=== PATIENT | female | born 1965 | race Caucasian/White ===

== ENCOUNTER 2022-01-05 12:28 | Inpatient (IN) | payer OTHER ==
[~2022-01-05 12:28] MED LIST: Iopamidol-370 76% 500 ML 1 ML ONE
[2022-01-05 14:09] LABS: #Eosinphils 0.1 thou/uL (0.0-0.7); #Lymphocytes 1.4 thou/uL (1.20-3.40); #Monocytes 0.3 thou/uL (0.11-0.59); #Neutrophils 3.2 thou/uL (1.40-6.50); %Basophils 0.4 % (0.0-1.0); %Eosinophils 1.6 % (0.0-10.0); %Lymphocytes 27.6 % (21.0-51.0); %Monocytes 6.7 % (0.0-10.0); %Neutrophils 63.6 % (42.0-75.0); Hemoglobin 13.8 g/dL (12.0-16.0); Mean Corpuscular HGB CONC 32.8 g/dL (32.0-36.0); Mean Corpuscular Hemoglobin 30.1 pg (27.0-31.0); Mean Corpuscular Volume 91.5 fL (78.0-98.0); Platelet Count 182 thou/uL (130-400); RBC Distribution Width 11.6 % (11.5-14.5); Red Blood Cell (RBC) Count 4.58 mill/uL (4.20-5.40)
[2022-01-05] MEDS ORDERED: Tenecteplase 50 MG - STEMI KIT ONE (14:18)
[2022-01-05 14:24] LABS: INR-International Normal Ratio 0.9; PTT 25.7 sec (22.9-36.1); Prothrombin Time 12.6 sec (12.0-14.7)
[2022-01-05 14:28] LABS: ALT (SGPT) 21 U/L (8-55); AST (SGOT) 22 U/L (5-34); Albumin 4.1 g/dL (3.5-5.0); Alkaline Phosphatase 98 U/L (40-110); Anion Gap 14 mmol/L (10-20); BUN (Urea Nitrogen) 10 mg/dL (9.8-20.1); Bilirubin, Total 0.5 mg/dL (0.2-1.2); Calc. Creatinine Clearance 0 mL/min (70-130); Calcium 9.1 mg/dL (7.8-10.44); Carbon Dioxide 24 mmol/L (22-29); Chloride 103 mmol/L (98-107); Estimated GFR 102; Globulin 3.3 g/dL (2.4-3.5); Glucose 125 mg/dL (70-105); Potassium 4.1 mmol/L (3.5-5.1); Protein, Total 7.4 g/dL (6.0-8.3); Sodium 137 mmol/L (136-145)
[2022-01-05] MEDS ORDERED: Communication Order-Pharmacy FS PRN (14:53)
[2022-01-05] MEDS ORDERED: niCARdipine 25 MG in Sodium Chloride 0.9% 250 ML 250 ML IVPB PRN (14:53)
[2022-01-05] MEDS ORDERED: hydrALAZINE 20 MG/ML VIAL SLOW IVP PRN (14:53)
[2022-01-05] MEDS ORDERED: Labetalol HCl 100 MG/20 ML VIAL SLOW IVP PRN (14:53)
[2022-01-05] MEDS ORDERED: Insulin Regular 300 UNITS/3 ML VIAL SC PRN (14:54)
[2022-01-05] MEDS ORDERED: Dextrose 5% in Water 1,000 ML IV PRN (14:58)
[2022-01-05] MEDS ORDERED: Dextrose 50% Abboject 50 ML SYRINGE SLOW IVP PRN (14:58)
[2022-01-05 15:36] LABS: SARS-CoV-2 NAA Rapid Test Not Detected (NotDetected)
[2022-01-05 17:04] VITALS: BMI 34.7
[2022-01-05] MEDS: Acetaminophen 325 MG TAB PO PRN (20:25)
[2022-01-05] MEDS: Atorvastatin Calcium 40 MG TAB PO SCH (20:25)
[2022-01-05] MEDS: HumaLOG 300 UNITS/3 ML VIAL SC PRN (21:34)
[2022-01-06] MEDS: Acetaminophen 325 MG TAB PO PRN (00:15)
[2022-01-06] MEDS ORDERED: Aspirin 81 mg Enteric Coated Tablet PO SCH (16:15)
[2022-01-06] MEDS: HumaLOG 300 UNITS/3 ML VIAL SC PRN ×2 (16:44→21:08)
[2022-01-06] MEDS: Atorvastatin Calcium 40 MG TAB PO SCH (19:59)
[2022-01-07 03:36] LABS: #Eosinphils 0.1 thou/uL (0.0-0.7); #Lymphocytes 2.1 thou/uL (1.20-3.40); #Monocytes 0.4 thou/uL (0.11-0.59); %Basophils 0.5 % (0.0-1.0); %Eosinophils 1.8 % (0.0-10.0); %Monocytes 6.4 % (0.0-10.0); %Neutrophils 59.3 % (42.0-75.0); Hemoglobin 13.9 g/dL (12.0-16.0); Mean Corpuscular HGB CONC 32.5 g/dL (32.0-36.0); Mean Corpuscular Hemoglobin 29.8 pg (27.0-31.0); Mean Corpuscular Volume 91.9 fL (78.0-98.0); Mean Platelet Volume 8.8 fL (7.4-10.4); Platelet Count 180 thou/uL (130-400); RBC Distribution Width 11.8 % (11.5-14.5); Red Blood Cell (RBC) Count 4.66 mill/uL (4.20-5.40); White Blood Cell (WBC) Count 6.7 thou/uL (4.8-10.8)
[2022-01-07 03:48] LABS: Hemoglobin A1c 7.6 % (4.0-6.0)
[2022-01-07 04:05] LABS: Anion Gap 14 mmol/L (10-20); BUN (Urea Nitrogen) 10 mg/dL (9.8-20.1); Calc. Creatinine Clearance 140 mL/min (70-130); Calcium 9.4 mg/dL (7.8-10.44); Carbon Dioxide 24 mmol/L (22-29); Chloride 104 mmol/L (98-107); Estimated GFR 102; Glucose 141 mg/dL (70-105); Magnesium 1.9 mg/dL (1.6-2.6); Sodium 138 mmol/L (136-145)
[2022-01-07] MEDS: HumaLOG 300 UNITS/3 ML VIAL SC PRN (06:39)
[2022-01-07] MEDS ORDERED: Aspirin 325 mg Enteric Coated Tablet PO SCH (09:00)
[2022-01-07 11:15] LABS: Syphilis Antibody Nonreactive (Nonreactive); Syphilis Antibody Index 0.04 S/CO (<1.00 Non-Reactive)
[2022-01-07] MEDS ORDERED: Aspirin 81 mg Enteric Coated Tablet PO SCH (11:45)
[2022-01-07] MEDS ORDERED: Clopidogrel Bisulfate 75 MG TAB PO SCH (11:45)
[2022-01-07 12:52] VITALS: TEMP 98.7
[2022-01-07 16:03] VITALS: BP 113/80
[2022-01-08] MEDS ORDERED: Clopidogrel Bisulfate 75 MG TAB PO SCH (09:00)
[2022-01-08] MEDS ORDERED: Aspirin 81 mg Enteric Coated Tablet PO SCH (09:00)
== END 2022-01-07 13:48 | DRG 62 ==
LOC: ERS 12:28 → ERHOLD 14:53 → EEVIPCON 14:53 → CCU 16:28
PROVIDERS: ADMIT Internal Medicine; ATTEND Internal Medicine
DX: G45.9 Transient cerebral ischemic attack, unspecified (principal); I69.954 Hemiplegia and hemiparesis following unspecified cerebrovascular disease affecting left non-dominant side; R47.01 Aphasia; Z20.822 Contact with and (suspected) exposure to COVID-19; E11.9 Type 2 diabetes mellitus without complications; E66.01 Morbid (severe) obesity due to excess calories; E78.5 Hyperlipidemia, unspecified; F98.8 Other specified behavioral and emotional disorders with onset usually occurring in childhood and adolescence; J44.9 Chronic obstructive pulmonary disease, unspecified; R29.810 Facial weakness; Z90.49 Acquired absence of other specified parts of digestive tract; Z88.5 Allergy status to narcotic agent; Z88.2 Allergy status to sulfonamides; Z88.0 Allergy status to penicillin; Z79.51 Long term (current) use of inhaled steroids; Z79.84 Long term (current) use of oral hypoglycemic drugs; Z79.899 Other long term (current) drug therapy; Z90.710 Acquired absence of both cervix and uterus; Z87.891 Personal history of nicotine dependence
CPT/HCPCS: 36415; 36416; 70450; 70496; 70498; 70551; 71045; 80048; 80053; 80061; 83036; 83735; 84443; 84484; 85025; 85610; 85730; 86780; 93005; 93306; 94760; 96374; 99292; J1815; J3101; Q9967; U0002

== ENCOUNTER 2022-02-03 20:21 | Inpatient (IN) | payer OTHER ==
[2022-02-03 20:45] LABS: #Eosinphils 0.1 thou/uL (0.0-0.7); #Lymphocytes 1.8 thou/uL (1.20-3.40); #Monocytes 0.4 thou/uL (0.11-0.59); #Neutrophils 4.1 thou/uL (1.40-6.50); %Basophils 0.3 % (0.0-1.0); %Eosinophils 1.6 % (0.0-10.0); %Lymphocytes 27.6 % (21.0-51.0); %Monocytes 6.2 % (0.0-10.0); %Neutrophils 64.3 % (42.0-75.0); Hemoglobin 12.8 g/dL (12.0-16.0); Mean Corpuscular HGB CONC 33.5 g/dL (32.0-36.0); Mean Corpuscular Hemoglobin 30.6 pg (27.0-31.0); Mean Corpuscular Volume 91.4 fL (78.0-98.0); Mean Platelet Volume 8.4 fL (7.4-10.4); Platelet Count 175 thou/uL (130-400); RBC Distribution Width 11.5 % (11.5-14.5); Red Blood Cell (RBC) Count 4.18 mill/uL (4.20-5.40); White Blood Cell (WBC) Count 6.4 thou/uL (4.8-10.8)
[2022-02-03 20:59] LABS: Prothrombin Time 12.7 sec (12.0-14.7)
[2022-02-03 21:00] LABS: ALT (SGPT) 18 U/L (8-55); AST (SGOT) 20 U/L (5-34); Albumin 3.9 g/dL (3.5-5.0); Alkaline Phosphatase 105 U/L (40-110); Anion Gap 14 mmol/L (10-20); BUN (Urea Nitrogen) 14 mg/dL (9.8-20.1); Bilirubin, Total 0.3 mg/dL (0.2-1.2); CK (CPK) 81 U/L (29-168); Calc. Creatinine Clearance 0 mL/min (70-130); Calcium 9.2 mg/dL (7.8-10.44); Carbon Dioxide 26 mmol/L (22-29); Chloride 101 mmol/L (98-107); Estimated GFR 80; Globulin 3.5 g/dL (2.4-3.5); Glucose 228 mg/dL (70-105); Potassium 4.1 mmol/L (3.5-5.1); Protein, Total 7.4 g/dL (6.0-8.3); Sodium 137 mmol/L (136-145)
[2022-02-03] MEDS ORDERED: Acetaminophen 500 MG TAB ONE (21:04)
[2022-02-03 21:07] LABS: PTT 22.7 sec (22.9-36.1)
[2022-02-03 23:14] LABS: SARS-CoV-2 NAA Rapid Test Not Detected (NotDetected)
[2022-02-03] MEDS ORDERED: hydrALAZINE 20 MG/ML VIAL SLOW IVP PRN (23:46)
[2022-02-03] MEDS ORDERED: Acetaminophen 650 MG Suppository PR PRN (23:46)
[2022-02-03] MEDS ORDERED: Ondansetron ODT 4 MG TAB PO PRN (23:46)
[2022-02-03] MEDS ORDERED: Ondansetron PF 4 MG/2 ML Vial IVP PRN (23:46)
[2022-02-04 01:18] VITALS: BMI 34.7
[2022-02-04 05:18] LABS: #Eosinphils 0.1 thou/uL (0.0-0.7); #Lymphocytes 2.1 thou/uL (1.20-3.40); #Monocytes 0.4 thou/uL (0.11-0.59); #Neutrophils 3.4 thou/uL (1.40-6.50); %Basophils 0.7 % (0.0-1.0); %Eosinophils 2.2 % (0.0-10.0); %Lymphocytes 34.3 % (21.0-51.0); %Monocytes 6.2 % (0.0-10.0); %Neutrophils 56.6 % (42.0-75.0); Mean Corpuscular HGB CONC 32.6 g/dL (32.0-36.0); Mean Corpuscular Hemoglobin 30.2 pg (27.0-31.0); Mean Corpuscular Volume 92.7 fL (78.0-98.0); Mean Platelet Volume 8.2 fL (7.4-10.4); Platelet Count 169 thou/uL (130-400); RBC Distribution Width 11.6 % (11.5-14.5); Red Blood Cell (RBC) Count 4.29 mill/uL (4.20-5.40); White Blood Cell (WBC) Count 6.1 thou/uL (4.8-10.8)
[2022-02-04 05:27] LABS: Anion Gap 14 mmol/L (10-20); BUN (Urea Nitrogen) 12 mg/dL (9.8-20.1); Calc. Creatinine Clearance 136 mL/min (70-130); Calcium 8.8 mg/dL (7.8-10.44); Carbon Dioxide 23 mmol/L (22-29); Cardiac Risk 3.2 (Less than 4.5); Chloride 105 mmol/L (98-107); Cholesterol 142 mg/dl (< 200 Desired); Estimated GFR 101; Glucose 183 mg/dL (70-105); HDL Cholesterol 44 mg/dL (>60 Neg Risk); LDL Cholesterol, Calculated 74 mg/dL; Potassium 3.8 mmol/L (3.5-5.1); Sodium 138 mmol/L (136-145); Triglycerides 118 mg/dL (Less than 150)
[2022-02-04] MEDS ORDERED: ALPRAZolam 0.25 MG TAB PO SCH (07:45)
[2022-02-04] MEDS: Aspirin 81 mg Enteric Coated Tablet PO SCH (08:35)
[2022-02-04] MEDS: Clopidogrel Bisulfate 75 MG TAB PO SCH (08:35)
[2022-02-04] MEDS: Enoxaparin Sodium 40 MG/0.4 ML SYRINGE SC SCH (08:35)
[2022-02-04] MEDS ORDERED: Aspirin 81 mg Enteric Coated Tablet PO SCH (09:00)
[2022-02-04] MEDS: DULoxetine 60 MG CAP PO SCH (09:09)
[2022-02-04] MEDS ORDERED: Dextrose 5% in Water 1,000 ML IV PRN (12:39)
[2022-02-04] MEDS ORDERED: Dextrose 50% Abboject 50 ML SYRINGE SLOW IVP PRN (12:39)
[2022-02-04] MEDS ORDERED: metFORMIN 500 MG TAB PO SCH (17:00)
[2022-02-04] MEDS: Insulin Regular 300 UNITS/3 ML VIAL SC PRN ×2 (17:25→22:21)
[2022-02-04] MEDS: Atorvastatin Calcium 40 MG TAB PO SCH (20:59)
[2022-02-04] MEDS ORDERED: Atorvastatin Calcium 40 MG TAB PO SCH (21:00)
[2022-02-04] MEDS: Acetaminophen 325 MG TAB PO PRN (22:21)
[2022-02-05] MEDS: Enoxaparin Sodium 40 MG/0.4 ML SYRINGE SC SCH (09:02)
[2022-02-05] MEDS: DULoxetine 60 MG CAP PO SCH (09:03)
[2022-02-05] MEDS: Aspirin 81 mg Enteric Coated Tablet PO SCH (09:03)
[2022-02-05] MEDS: Clopidogrel Bisulfate 75 MG TAB PO SCH (09:03)
[2022-02-05] MEDS: Insulin Regular 300 UNITS/3 ML VIAL SC PRN ×2 (11:07→20:00)
[2022-02-05] MEDS ORDERED: Albuterol 200 PUFF (6.7GM INHALER) INH PRN (13:13)
[2022-02-05] MEDS: Ipratropium Bromide 2.5 ml Neb NEB SCH ×2 (18:39→23:59)
[2022-02-05] MEDS: Atorvastatin Calcium 40 MG TAB PO SCH (19:59)
[2022-02-05] MEDS: Acetaminophen 325 MG TAB PO PRN (19:59)
[2022-02-06] MEDS: Ipratropium Bromide 2.5 ml Neb NEB SCH ×3 (07:19→18:30)
[2022-02-06] MEDS: Clopidogrel Bisulfate 75 MG TAB PO SCH (10:07)
[2022-02-06] MEDS: Aspirin 81 mg Enteric Coated Tablet PO SCH (10:07)
[2022-02-06] MEDS: DULoxetine 60 MG CAP PO SCH (10:07)
[2022-02-06] MEDS: Enoxaparin Sodium 40 MG/0.4 ML SYRINGE SC SCH (10:07)
[2022-02-06] MEDS: Insulin Regular 300 UNITS/3 ML VIAL SC PRN ×2 (13:15→21:23)
[2022-02-06] MEDS: Atorvastatin Calcium 40 MG TAB PO SCH (20:41)
[2022-02-07] MEDS: Ipratropium Bromide 2.5 ml Neb NEB SCH ×2 (01:02→06:50)
[2022-02-07 05:06] LABS: #Eosinphils 0.1 thou/uL (0.0-0.7); #Lymphocytes 2.1 thou/uL (1.20-3.40); #Monocytes 0.4 thou/uL (0.11-0.59); #Neutrophils 4.3 thou/uL (1.40-6.50); %Basophils 0.2 % (0.0-1.0); %Eosinophils 1.9 % (0.0-10.0); %Lymphocytes 29.8 % (21.0-51.0); %Monocytes 6.3 % (0.0-10.0); %Neutrophils 61.8 % (42.0-75.0); Hemoglobin 13.5 g/dL (12.0-16.0); Mean Corpuscular Hemoglobin 30.3 pg (27.0-31.0); Mean Corpuscular Volume 91.7 fL (78.0-98.0); Mean Platelet Volume 8.1 fL (7.4-10.4); Platelet Count 188 thou/uL (130-400); RBC Distribution Width 11.7 % (11.5-14.5); Red Blood Cell (RBC) Count 4.45 mill/uL (4.20-5.40); White Blood Cell (WBC) Count 6.9 thou/uL (4.8-10.8)
[2022-02-07 05:25] LABS: Anion Gap 11 mmol/L (10-20); BUN (Urea Nitrogen) 13 mg/dL (9.8-20.1); Calc. Creatinine Clearance 133 mL/min (70-130); Calcium 9.4 mg/dL (7.8-10.44); Carbon Dioxide 28 mmol/L (22-29); Chloride 102 mmol/L (98-107); Estimated GFR 97; Glucose 154 mg/dL (70-105); Potassium 4.3 mmol/L (3.5-5.1); Sodium 137 mmol/L (136-145)
[2022-02-07] MEDS ORDERED: PROPOFOL 20 ML ONE (07:40)
[2022-02-07] MEDS: Aspirin 81 mg Enteric Coated Tablet PO SCH (09:03)
[2022-02-07] MEDS: Clopidogrel Bisulfate 75 MG TAB PO SCH (09:03)
[2022-02-07] MEDS: DULoxetine 60 MG CAP PO SCH (09:04)
[2022-02-07] MEDS: Enoxaparin Sodium 40 MG/0.4 ML SYRINGE SC SCH (09:04)
[2022-02-07 11:51] VITALS: BP 110/16; TEMP 98.6
== END 2022-02-07 13:10 | DRG 69 ==
LOC: ERS 20:21 → NEURO 23:22 → OBSVTOIN 02-05 13:50 → EEVIPCON 02-05 13:50
PROVIDERS: ADMIT Internal Medicine; ATTEND Internal Medicine
PROC: B246ZZ4 Ultrasonography of Right and Left Heart, Transesophageal (ICD-10-PCS; principal; 2022-02-07)
DX: G45.9 Transient cerebral ischemic attack, unspecified (principal); I69.354 Hemiplegia and hemiparesis following cerebral infarction affecting left non-dominant side; Z20.822 Contact with and (suspected) exposure to COVID-19; E11.9 Type 2 diabetes mellitus without complications; J44.9 Chronic obstructive pulmonary disease, unspecified; I08.1 Rheumatic disorders of both mitral and tricuspid valves; E78.5 Hyperlipidemia, unspecified; F43.22 Adjustment disorder with anxiety; I10 Essential (primary) hypertension; E66.9 Obesity, unspecified; Z68.34 Body mass index [BMI] 34.0-34.9, adult; Z88.1 Allergy status to other antibiotic agents; Z88.5 Allergy status to narcotic agent; Z88.0 Allergy status to penicillin; Z88.2 Allergy status to sulfonamides; Z79.899 Other long term (current) drug therapy; Z79.82 Long term (current) use of aspirin; Z79.02 Long term (current) use of antithrombotics/antiplatelets; Z79.84 Long term (current) use of oral hypoglycemic drugs; Z90.49 Acquired absence of other specified parts of digestive tract; Z90.710 Acquired absence of both cervix and uterus; Z87.891 Personal history of nicotine dependence; Z82.3 Family history of stroke; Z82.49 Family history of ischemic heart disease and other diseases of the circulatory system
CPT/HCPCS: 36415; 36416; 70450; 70551; 80048; 80053; 80061; 82550; 84484; 85025; 85610; 85730; 93005; 93312; 94640; 95819; 95957; J1650; J1815; J2704; J7620; U0002

== ENCOUNTER 2024-02-09 22:08 | Observation (INO) | payer OTHER ==
[2024-02-09 22:34] LABS: #Basophils 0.05 10x3/uL (0.0-0.2); %Basophils 0.6 % (0.0-1.0); %Eosinophils 0.9 % (0.0-10.0); %Lymphocytes 22.9 % (21.0-51.0); %Monocytes 5.8 % (0.0-10.0); %Neutrophils 69.4 % (42.0-75.0); Hematocrit 43.6 % (36.0-47.0); Hemoglobin 14.4 g/dL (12.0-16.0); Mean Corpuscular Hemoglobin 29.9 pg (27.0-31.0); Mean Corpuscular Volume 90.6 fL (78.0-98.0); Mean Platelet Volume 10.5 fL (7.4-10.4); Platelet Count 184 10x3/uL (130-400); RBC Distribution Width 12.3 % (11.5-14.5); Red Blood Cell (RBC) Count 4.81 mill/uL (4.20-5.40)
[2024-02-09] MEDS ORDERED: Ondansetron PF 4 MG/2 ML Vial ONE (22:47)
[2024-02-09] MEDS ORDERED: Nitroglycerin 2% Ointment 1 INCH/1 GM Packet ONE (22:47)
[2024-02-09 22:49] LABS: ALT (SGPT) 22 U/L (8-55); AST (SGOT) 22 U/L (5-34); Albumin 3.9 g/dL (3.5-5.0); Alkaline Phosphatase 92 U/L (40-110); Anion Gap 15 mmol/L (10-20); BUN (Urea Nitrogen) 12 mg/dL (9.8-20.1); Bilirubin, Total 0.4 mg/dL (0.2-1.2); Calc. Creatinine Clearance 0 mL/min (70-130); Calcium 9.1 mg/dL (7.8-10.44); Carbon Dioxide 25 mmol/L (22-29); Chloride 102 mmol/L (98-107); Estimated GFR 86; Globulin 3.9 g/dL (2.4-3.5); Glucose 164 mg/dL (70-105); Lipase 19 U/L (8-78); Potassium 4.1 mmol/L (3.5-5.1); Protein, Total 7.8 g/dL (6.0-8.3); Sodium 138 mmol/L (136-145)
[2024-02-09 22:54] LABS: Troponin I Less than 0.010 ng/mL (< 0.028)
[2024-02-09] MEDS ORDERED: Aspirin Chewable 81 MG TAB ONE (23:22)
[2024-02-10] MEDS ORDERED: Glucagon 1 MG/ML KIT IM PRN (00:41)
[2024-02-10] MEDS ORDERED: Dextrose 5% in Water 1,000 ML IV PRN (00:41)
[2024-02-10] MEDS ORDERED: Dextrose 50% Abboject 50 ML SYRINGE SLOW IVP PRN (00:41)
[2024-02-10] MEDS ORDERED: Ondansetron PF 4 MG/2 ML Vial IVP PRN (01:07)
[2024-02-10] MEDS ORDERED: traMADol HCl 50 MG TAB PO PRN (01:07)
[2024-02-10] MEDS: Meclizine HCl 12.5 MG TAB PO PRN (02:18)
[2024-02-10] MEDS: Acetaminophen 325 MG TAB PO PRN (02:18)
[2024-02-10 02:48] VITALS: BMI 35.2
[2024-02-10 03:25] LABS: Troponin I Less than 0.010 ng/mL (< 0.028)
[2024-02-10 04:37] LABS: #Basophils 0.03 10x3/uL (0.0-0.2); #Eosinophils Less than 0.03 10x3/uL (0.0-0.7); %Basophils 0.4 % (0.0-1.0); %Eosinophils 0.3 % (0.0-10.0); %Lymphocytes 23.4 % (21.0-51.0); %Neutrophils 70.5 % (42.0-75.0); Hematocrit 41.5 % (36.0-47.0); Mean Corpuscular HGB CONC 33.7 g/dL (32.0-36.0); Mean Corpuscular Volume 88.9 fL (78.0-98.0); Mean Platelet Volume 11.1 fL (7.4-10.4); Platelet Count 151 10x3/uL (130-400); RBC Distribution Width 12.3 % (11.5-14.5); Red Blood Cell (RBC) Count 4.67 mill/uL (4.20-5.40)
[2024-02-10] MEDS: Lidocaine 2% Viscous Solution 10 ML, Aluminum & Magnesium Hydroxide 30 ML SSW SCH (04:46)
[2024-02-10] MEDS: Pantoprazole 40 MG VIAL IVP SCH ×2 (04:46→08:58)
[2024-02-10] MEDS: Lidocaine Viscous Sol 2% 15 ml UD Cup ONE (04:53)
[2024-02-10 06:07] LABS: Anion Gap 12 mmol/L (10-20); BUN (Urea Nitrogen) 11 mg/dL (9.8-20.1); Calc. Creatinine Clearance 131 mL/min (70-130); Calcium 9.2 mg/dL (7.8-10.44); Carbon Dioxide 26 mmol/L (22-29); Chloride 102 mmol/L (98-107); Estimated GFR 96; Glucose 133 mg/dL (70-105); Potassium 3.8 mmol/L (3.5-5.1); Sodium 136 mmol/L (136-145)
[2024-02-10 06:12] LABS: Troponin I Less than 0.010 ng/mL (< 0.028)
[2024-02-10] MEDS: Ipratropium Bromide 2.5 ml Neb NEB SCH (07:59)
[2024-02-10] MEDS: Aspirin 81 mg Enteric Coated Tablet PO SCH (08:57)
[2024-02-10] MEDS: Clopidogrel Bisulfate 75 MG TAB PO SCH (08:57)
[2024-02-10] MEDS: DULoxetine 60 MG CAP PO SCH (08:57)
[2024-02-10] MEDS ORDERED: Heparin 5,000 UNITS/ML VIAL SC SCH (09:00)
[2024-02-10] MEDS ORDERED: Pantoprazole 40 MG VIAL IVP SCH (09:00)
[2024-02-10] MEDS: FLU (Fluarix Triv) TS24-25(6MOS UP)/PF 45 MCG/0.5 ML Syringe IM ONE (09:16)
[2024-02-10] MEDS ORDERED: Regadenoson 0.4 MG/5 ML SYRINGE ONE (11:40)
[2024-02-10 16:18] VITALS: BP 100/56; TEMP 97.8
[2024-02-10] MEDS: Insulin Lispro 100 UNIT/ML 10 ML VIAL SC PRN (17:37)
[2024-02-10] MEDS ORDERED: Atorvastatin Calcium 40 MG TAB PO SCH (21:00)
== END 2024-02-10 18:59 ==
LOC: EEVIPCON 22:08 → ERS 22:08 → 2NO 02-10 00:33
PROVIDERS: ADMIT Internal Medicine; ATTEND Hospitalist
DX: R07.2 Precordial pain (principal); E11.9 Type 2 diabetes mellitus without complications; E78.5 Hyperlipidemia, unspecified; E66.9 Obesity, unspecified; J44.9 Chronic obstructive pulmonary disease, unspecified; Z86.73 Personal history of transient ischemic attack (TIA), and cerebral infarction without residual deficits; Z90.710 Acquired absence of both cervix and uterus; Z90.49 Acquired absence of other specified parts of digestive tract; Z88.0 Allergy status to penicillin; Z88.1 Allergy status to other antibiotic agents; Z88.2 Allergy status to sulfonamides; Z88.5 Allergy status to narcotic agent; Z79.84 Long term (current) use of oral hypoglycemic drugs; Z79.899 Other long term (current) drug therapy
CPT/HCPCS: 36415; 36416; 70450; 71045; 78452; 80048; 80053; 83690; 84484; 85025; 93005; 93017; 96375; 96376; A9500; G0378; J2405; J2470; J2785; J7644